=== PATIENT | male | born 1985 | race Caucasian/White ===

== ENCOUNTER 2024-10-29 19:44 | Emergency (ER) | payer OTHER, SELFPAY ==
[2024-10-29 19:45] VITALS: BP 191/107; PULSE 103; RESP 18; TEMP 36.9; O2SAT 95
--- NOTE | 2024-10-29 19:56 | ED.GENADUL_ITS ---
Discharge Plan Discharge Details Chief Complaint: Nk/Back Pain Primary Care Provider: None,None ED Provider: Lenore Meyer Home Meds and New Rx's Prescriptions: No Action insulin lispro [Humalog KwikPen Insulin] 100 unit/mL insulin pen 1 sliding scale dose subcut USEASDIRECTD insulin glargine [Lantus U-100 Insulin] 100 unit/mL solution 40 unit subcut QPM HPI General Date/Time Provider Initiated Documentation: 10/29/24 19:45 . HPI Narrative: Hemanth is a 39-year-old male who presents to the emergency department today for evaluation of lower back pain with left-sided radiculopathy. Accompanied by his mother. Yesterday morning, his 7-month-old daughter fell off the bed, and he twisted his back catching her (twisting/bending down/swooping up). Pain radiates from the top of his left buttock, through his lower back, down his leg, ending at his ankle. He reports mild subjective numbness in toes bilaterally. Denies change in bowel/bladder function, dysuria, abdominal pain, fever/chills, nausea/vomiting. Saw chiropractor this morning with some improvement of pain, but it has steadily ramped up throughout the day. No history of spinal injections or IV drug use. Taking L10s and TL177 for pain (likely solumedrol and cyclobenzaprine per pill identifier). Took 3 ibuprofen and 1 Tylenol at 1330 hours today. Previous back injury 1 to 1.5 months ago while getting out of the car, treated with chiropractic traction. Recent incident exacerbated condition. has history of back injury 20 years ago, resulting in crushed disc at L4-L5 and 3-month leave from work, treated with home health care provider for 3 months, no surgery. PMH significant for : diabetes managed with Humalog insulin 3 times a day and Lantus 2 times a day. Last A1c was 8.9. Related Data Home Medications ?Medication ?Instructions ?Recorded ?Confirmed insulin glargine 100 unit/mL 40 unit subcut QPM 10/29/24 subcutaneous solution (Lantus U-100 Insulin) insulin lispro 100 unit/mL 1 sliding scale dose subcut 10/29/24 10/29/24 subcutaneous pen (Humalog KwikPen USEASDIRECTD (U-100) Insulin) Allergies Allergy/AdvReac Type Severity Reaction Status Date / Time No Known Allergies Allergy Unverified 10/29/24 19:52 General Stated Complaint: GenMedical SHAHRAM: 4 Exam Narrative Exam Narrative: General Appearance: Normal. Patient appears most comfortable at rest, uncomfortable with movement. Vital signs: Hypertension and tachycardia noted, consistent with pain. Afebrile. Back, Musculoskeletal: Positive straight leg raise test on left side y indicating sciatica. Muscle spasm in left lower back. No C-spine/T-spine/L-spine step-off/tenderness/deformity. Neurological: Good strength bilaterally (5/5). Achilles reflexes intact. Sensation intact bilaterally with mild subjective numbness in toes (tingling with palpation). Skin: Warm and dry, no rash. No color change to extremities, dorsalis pedis pulses intact bilaterally. Psychiatric: Normal. Other observations: [employer]: Mother present. Course Vital Signs Vital signs: Vital Signs Temperature 36.9 C 10/29/24 19:45 Pulse 103 H 10/29/24 19:45 Respiratory Rate 18 10/29/24 19:45 Blood Pressure 191/107 H 10/29/24 19:45 Pulse Oximetry 95 10/29/24 19:45 Temperature 36.9 C 10/29/24 19:45 Pulse 103 H 10/29/24 19:45 Respiratory Rate 18 10/29/24 19:45 Blood Pressure 191/107 H 10/29/24 19:45 Pulse Oximetry 95 10/29/24 19:45 Oxygen Delivery Method Room Air 10/29/24 19:45 Oxygen Flow Rate 0 10/29/24 19:45 Pain Level 8 10/29/24 19:45 Medical Decision Making Initial Assessment: Acute exacerbation of chronic back pain, likely due to herniated disc causing sciatica. No red flags concerning for serious etiology of back pain such as infection, fracture, malignancy, hematoma or complication such as cauda equina. Differential Diagnosis includes but is not limited to: Herniated disc, musculoskeletal strain ED Course: - Administered Toradol injection for pain relief. - Conducted physical examination including strength, reflexes, and straight leg raise test. Reassuring, no focal neurofindings - Administered Tylenol, Valium, and lidocaine patch. Gabapentin also administered Despite multimodal pain relief patient was unable to have pain adequately controlled, is unable to ambulate due to discomfort. Discussed case with Dr. Pan, [facility] hospitalist. Plan to seek either lateral transfer or ED obs/hospitalist consult. CT ordered to rule out acute bony pathology secondary to chiropractor appointment Final Assessment: Acute exacerbation of chronic back pain likely due to herniated disc causing sciatica. Clinical Impression: - Herniated disc with sciatica - Musculoskeletal strain Disposition: Overnight Obs vs admission for pain control and PT consult the morningin the morning. Handoff report given to Dr. Mcmillan, lisandra attending; lateral transfer is being explored as an option Patient Education: Discussed multipronged approach to pain management, importance of physical therapy, and signs to watch for that would necessitate return to the ED. Patient consented to the use of FE Imaging Data Radiologic Study: Radiologist's impression: PROCEDURE INFORMATION: Exam: CT Thoracic Spine Without Contrast Exam date and time: 10/29/2024 10:51 PM Age: 39 years old Clinical indication: Other: Worsening lower back pain, L sided sciatica TECHNIQUE: Imaging protocol: Computed tomography of the thoracic spine without contrast. COMPARISON: No relevant prior studies available. FINDINGS: Bones/joints: No acute fracture. Normal alignment. No significant disc bulge or herniation. No severe spinal canal stenosis. No significant neural foraminal narrowing. Soft tissues: Unremarkable. IMPRESSION: No acute thoracic spine fracture. PROCEDURE INFORMATION: Exam: CT Lumbar Spine Without Contrast Exam date and time: 10/29/2024 10:51 PM Age: 39 years old Clinical indication: Other: Worsening lower back pain, L sided sciatica TECHNIQUE: Imaging protocol: Computed tomography of the lumbar spine without contrast. FINDINGS: Bones/joints: No acute fracture. Normal alignment. Large left paracentral disc herniation directed inferiorly at L4-L5 measuring up to 1.9 cm in superior to inferior dimension and 1.2 cm at its base. The disc herniation measures 1.3 cm in AP diameter. There is moderate to severe left-sided compression of the thecal sac. Small central/left paracentral disc herniation at L3-L4 mildly narrowing the central canal. Severe left foraminal stenosis at this level Soft tissues: Bilateral nephrolithiasis without hydronephrosis IMPRESSION: Large inferiorly directed left paracentral disc herniation at L4-L5 with moderate to severe left- sided central canal stenosis Severe left foraminal stenosis at L3-L4 and 5 left paracentral disc herniation Bilateral nephrolithiasis without hydronephrosis PFSH Social History Smoking/Tobacco Use Status: Never Smoking risk assessment performed?: Yes Alcohol Intake: current Alcohol Intake frequency: holidays/special occasions only Substance use type: does not use Housing: house Do you feel safe at home: Yes Do you feel safe in your relationship?: Yes
[2024-10-29 20:01] VITALS: BP 191/107; PULSE 103; RESP 18; TEMP 36.9; O2SAT 95
[2024-10-29] MEDS: diazePAM 5 MG TAB PO (20:23)
[2024-10-29] MEDS: Acetaminophen 325 MG TAB 650 MG PO (20:23)
[2024-10-29] MEDS: Ketorolac 30 MG/ML VIAL IM (20:23)
[2024-10-29] MEDS: Lidocaine 5% Patch 1 PATCH TP (20:24)
[2024-10-29 21:16] VITALS: BP 157/96; PULSE 92; RESP 18; O2SAT 99
[2024-10-29] MEDS: Gabapentin 300 MG CAP (21:35)
[2024-10-29] MEDS: Gabapentin 100 MG CAP (21:35)
--- NOTE | 2024-10-29 22:45 | DI.CT_ITS ---
Exam(s) CT THORACIC LUMBAR SPINE WO EXAM: CT THORACIC LUMBAR SPINE WO CLINICAL HISTORY: L sided sciatica. TECHNIQUE: Imaging Protocol: Axial computed tomography images with coronal and sagittal reformatted images were created and reviewed. CONTRAST MATERIAL: Intravenous: None COMPARISON: No exams were available for comparison FINDINGS: THORACIC SPINAL COLUMN: No evidence of fracture or listhesis nor acute compromise of the thoracic spinal canal. Facet joints appear unremarkable. No facet malalignment. No obvious degenerative changes in the facet joints.. LUMBOSACRAL SPINAL COLUMN: No evidence of fracture, listhesis, nor pars defects. Main findings are at L4-5 level where there is moderate disc space narrowing and a large central-left sided disc herniation which extends posteriorly 1.3 cm, is approximately 1.5 cm wide, and occupies lateral recess and significantly indents the thecal sac and extends inferiorly approximately 1.8 cm. Facet joints at this level appear unremarkable. At L5-S1 level there is some annular bulging but without a dominant disc herniation and central canal dimensions are lower normal. Facet joints unremarkable and there is no significant foraminal stenosis on either side at L5-S1 level. IMPRESSION: At L4-5 level there is a large left paracentral disc herniation as described above which results in moderate-severe left-sided central canal stenosis. Significant compression of the thecal sac. Other level findings also evident but the main findings are at L4-5 level. Recommend follow-up MRI of the lumbar spine RADIATION DOSE DELIVERED: 3,255.62mGy.cm Total DLP DATA REPOSITORY: All CT scans at this facility are submitted to the National Radiology Data Registry (NRDR) Dose Index Registry (DIR) with the [employer] (ACR). RADIATION OPTIMIZATION: All CT scans at this facility use at least one of these dose optimization techniques: automated exposure control; mA and/or kV adjustment per patient size (includes targeted exams where dose is matched to clinical indication); or iterative reconstruction.
--- NOTE | 2024-10-29 23:29 | DI.VRAD_ITS ---
PROCEDURE INFORMATION: Exam: CT Thoracic Spine Without Contrast Exam date and time: 10/29/2024 10:51 PM Age: 39 years old Clinical indication: Other: Worsening lower back pain, L sided sciatica TECHNIQUE: Imaging protocol: Computed tomography of the thoracic spine without contrast. COMPARISON: No relevant prior studies available. FINDINGS: Bones/joints: No acute fracture. Normal alignment. No significant disc bulge or herniation. No severe spinal canal stenosis. No significant neural foraminal narrowing. Soft tissues: Unremarkable. IMPRESSION: No acute thoracic spine fracture. PROCEDURE INFORMATION: Exam: CT Lumbar Spine Without Contrast Exam date and time: 10/29/2024 10:51 PM Age: 39 years old Clinical indication: Other: Worsening lower back pain, L sided sciatica TECHNIQUE: Imaging protocol: Computed tomography of the lumbar spine without contrast. COMPARISON: No relevant prior studies available. FINDINGS: Bones/joints: No acute fracture. Normal alignment. Large left paracentral disc herniation directed inferiorly at L4-L5 measuring up to 1.9 cm in superior to inferior dimension and 1.2 cm at its base. The disc herniation measures 1.3 cm in AP diameter. There is moderate to severe left-sided compression of the thecal sac. Small central/left paracentral disc herniation at L3-L4 mildly narrowing the central canal. Severe left foraminal stenosis at this level Soft tissues: Bilateral nephrolithiasis without hydronephrosis IMPRESSION: Large inferiorly directed left paracentral disc herniation at L4-L5 with moderate to severe left-sided central canal stenosis Severe left foraminal stenosis at L3-L4 and 5 left paracentral disc herniation Bilateral nephrolithiasis without hydronephrosis Dictated and Authenticated by: Heri Quigley MD. Orderin Debbie Grover MD
--- NOTE | 2024-10-29 23:52 | W.EDPROG ---
Date of service: 10/29/24 Time of Service: 23:53 Medical Decision Making This patient was signed out to me. Please see previous notes for H&P and initial eval. In brief 39yo M with acute radicular low back pain with disc herniation at L4/L5 seen on CT, reassuring neurologic exam, remains unable to walk despite pain medication in the ED (tylenol, toradol, diazepam, gabapentin). Plan for observation stay for pain control, PT/OT; however regretfully no beds available at [facility] at this time. Signed out with plan to explore options for lateral transfer. On my assessment patient reports minimal relief from medications in the ED thus far. Thinks the toradol may have helped somewhat. Did also have a single cyclobenzaprine prior to arrival also without effect. Pain is usually tolerable while remaining still though he will have occasional 'waves' of pain that last for 2-3 minutes. Severe pain with ambulation but is able to 'power through' if necessary. He is reluctant to transfer to another hospital. Discussed options for proceeding; limited evidence for utility of steroids and risk/benefit of short course of oral opiates. After shared decision making, elected to try dose of oxycodone and prednisone here and reassess in one hour. After that will need to make decision regarding discharge vs transfer. On reassessment patient reports medication 'took the edge off' at least while he is still. Thinks he may be able to sleep. Neurologic exam remains reassuring; no indication for emergent MRI. Would prefer to discharge home and 'see how it goes' as opposed to pursue transfer. Will prescribe short course of prednisone and oxycodone; advised symptomatic treatment at home and close PCP followup. Discharged home; discharge instructions and return precautions were reviewed with patient and family at bedside. All questions were answered and he is in full agreement with the plan. Exam Narrative Exam Narrative: Neuro: Alert?. Fluent speech, no dysarthria. Motor- 5/5 strength symmetric bilateral lower extremities Sensation- ?Intact to light touch and symmetric multiple dermatomes bilateral lower extremities. No saddle anesthesia. Reflexes- 2/4 achilles & patellar, no clonus Gait/station: ?With walker: No truncal ataxia. Steady gait with equal short steps Discharge Plan Disposition Patient Disposition: Home Condition: Good Discharge Details Clinical Impression: Sciatica, Herniated intervertebral disc of lumbar spine Primary Care Provider: None,None ED Provider: Kaley Mcmillan Home Meds and New Rx's Prescriptions: New prednisone 20 mg tablet 20 mg PO DAILY Qty: 4 0RF oxycodone 5 mg tablet 5 mg PO Q6H PRNQty: 20 0RF Continued insulin lispro [Humalog KwikPen Insulin] 100 unit/mL insulin pen 1 sliding scale dose subcut USEASDIRECTD insulin glargine [Lantus U-100 Insulin] 100 unit/mL solution 40 unit subcut QPM Discharge Instructions Instructions: Herniated Disc (DC), Sciatica ED Additional Instructions: Tylenol and ibuprofen over the counter for pain; follow the directions on the bottle. Oxycodone 5-10mg up to every 6 hours as needed for breakthrough pain. Do not drive while you are taking this medication. Prednisone once a day for the next 4 days. Call your primary care doctor in the morning to schedule an appointment for within the next 72 hours to followup on your visit here. At that visit please discuss your back pain as well as your blood pressure which is high here in the emergency department. Return to the emergency department for new or worsening symptoms including uncontrolled pain, inability to walk, bowel or bladder incontinence, numbness or weakness in your legs, or if you have any other concerns. Referrals: None,None [Primary Care Provider, Unknown] Discharge Data Discharge Date/Time-TO BE ENTERED AT DEPARTURE: 10/30/24 02:16
[2024-10-30] MEDS: oxyCODONE 10 MG TAB PO (00:32)
[2024-10-30 00:39] VITALS: BP 166/112; PULSE 98; RESP 18; O2SAT 100
[2024-10-30 02:15] VITALS: BP 151/90; PULSE 95; RESP 18; O2SAT 98
== END 2024-10-30 02:16 | disposition home or self-care (01) ==
PROVIDERS: Emergency Provider Student in an Organized Health Care Education/Training Program
DX: M51.26 Other intervertebral disc displacement, lumbar region (principal); M48.061 Spinal stenosis, lumbar region without neurogenic claudication; E11.9 Type 2 diabetes mellitus without complications; Z79.4 Long term (current) use of insulin
CPT/HCPCS: 00123; 96372; 99284; 72128; 72131; J1885; J7512